=== PATIENT | female | born 1970 | race Two or more races ===

== ENCOUNTER 2023-07-22 15:21 | Emergency (ER) | payer OTHER ==
[2023-07-22] MEDS ORDERED: IBUP-1955 PO (17:27)
[2023-07-22 18:16] VITALS: BP 135/75; O2SAT 97
== END 2023-07-22 17:44 | disposition home or self-care (01) ==
LOC: ER 15:21
DX: G89.18 Other acute postprocedural pain (principal); M25.562 Pain in left knee; M79.662 Pain in left lower leg; Z79.899 Other long term (current) drug therapy
CPT/HCPCS: 93971-TC